=== PATIENT | female | born 1990 | race Caucasian/White ===

== ENCOUNTER → 2023-12-06 | Emergency (ER) | payer SELFPAY ==
[~2023-12-06] MED LIST: BUPIVACAINE 0.5% PF 10 ML VIAL ONE; CEPHALEXIN 250 MG CAP ONE; CODEINE 30MG/APAP 300MG TAB ONE; KETOROLAC 30 MG/ML INJ ONE; ONDANSETRON 4 MG (ODT) TAB ONE; PROMETHAZINE 25 MG TABLET ONE
--- NOTE | 2023-12-07 00:29 | EDPHYS ---
Physician Documentation [facility] Name: Janey Rayo Age: 33 yrs Sex: Female : 1990 Arrival Date: 12/06/2023 Time: 23:06 Bed 6 Private MD: ED Physician Hermilo Thurman HPI: 12/05 23:21 This 33 yrs old Female presents to ER via Unassigned with complaints of sp4 Toothache. 12/06 00:25 33-year-old female presents with acute worsening of her chronic dental pain left lower sp4 gingiva tooth #18 . Patient states there is moderate to severe pain tooth is severely decayed with large cavity. . Historical: - Allergies: 12/05 23:29 Zofran; jb4 23:29 Seroquel; jb4 23:29 Adderall; jb4 - PMHx: 23:29 Depressive disorder; Anxiety; Bipolar disorder; adhd; jb4 - PSHx: 23:29 None; jb4 - Immunization history:: Adult Immunizations up to date. - Social history:: Smoking status: Patient reports the use of cigarette tobacco products, smokes one pack cigarettes per day. Patient uses street drugs, Methamphetamine (Meth). - Family history:: not pertinent. ROS: 12/06 00:25 Constitutional: Negative for fever, chills, and weight loss, positive for dental pain sp4 All other systems are negative, Exam: 00:25 Constitutional: This is a well developed, well nourished patient who is awake, alert, sp4 and in no acute distress. Head/Face: Normocephalic, atraumatic. Eyes: Pupils equal round and reactive to light, extra-ocular motions intact. Lids and lashes normal. Conjunctiva and sclera are not injected. Cornea within normal limits. Periorbital areas with no swelling, redness, or edema. ENT: Nares patent. No nasal discharge, no septal abnormalities noted. Tympanic membranes are normal and external auditory canals are clear. Oropharynx with no redness, swelling, or masses, exudates, or evidence of obstruction, uvula midline. Mucous membranes moist. There is moderate periodontal disease, tooth #18 extensive decay with large cavity signs of decay into the root canals. Nonsalvageable appearing, otherwise there are several areas of dental carious including several dental cavities. Neck: Trachea midline, no thyromegaly or masses palpated, and no cervical lymphadenopathy. Supple, full range of motion without nuchal rigidity, or vertebral point tenderness. Chest/axilla: Normal chest wall appearance and motion. Nontender with no deformity. No lesions are appreciated. Cardiovascular: Regular rate and rhythm with a normal S1 and S2. No gallops, murmurs, or rubs. Normal PMI, no JVD. No pulse deficits. Respiratory: Lungs have equal breath sounds bilaterally, clear to auscultation and percussion. No rales, rhonchi or wheezes noted. No increased work of breathing, no retractions or nasal flaring. Abdomen/GI: Soft, with normal bowel sounds. No distension or tympany. No guarding or rebound. No evidence of tenderness throughout. Back: No spinal tenderness. No costovertebral tenderness. Skin: Warm, dry with normal turgor. Normal color with no rashes, no lesions, and no evidence of cellulitis. MS/ Extremity: Pulses equal, no cyanosis. Neurovascular intact. Full, normal range of motion. Neuro: Awake and alert, GCS 15, oriented to person, place, time, and situation. Cranial nerves II-XII grossly intact. Motor strength 5/5 in all extremities. Sensory grossly intact. Psych: Awake, alert, with orientation to person, place and time. Behavior, mood, and affect are within normal limits Vital Signs: 12/05 23:26 BP 120 / 83; Pulse 93; Resp 16; Temp 97.9(O); Pulse Ox 100% on R/A; Weight 61.23 kg; jb4 Height 5 ft. 3 in. (R); Pain 10/10; 23:26 Body Mass Index 23.91 (61.23 kg, 160.02 cm) jb4 23:26 Pain Scale: Adult jb4 MDM: 23:22 Patient medically screened. sp4 12/06 00:25 Differential diagnosis: dental caries, gingivitis, dental abscess, aphthous ulcers, sp4 gingivostomatitis. Data reviewed: vital signs, nurses notes. ED course: Patient will be discharged home with p.o. tramadol p.o. cephalexin p.o. ibuprofen. Advise follow-up with oral surgeon for extraction of the nearly decayed left lower molar tooth #18. . Administered Medications: 00:06 Not Given (drug allergyy): ondansetron4 mg PO once vc1 00:06 Drug: Promethazine PO 25 mg PO once Route: PO; vc1 00:52 Follow up: Response: No adverse reaction; Marked relief of symptoms; Pain is decreased vc1 00:07 Drug: Ketorolac IM 60 mg IM once Route: IM; Site: right ventrogluteal; vc1 00:52 Follow up: Response: No adverse reaction; Marked relief of symptoms; Pain is decreased vc1 00:07 Drug: Acetaminophen-Codeine PO (300 mg-30 mg) 2 tabs PO once; RASS on ADMIN: Combtv4, vc1 Very Agttd3, Agttd2, Rstlss1, AlertClm0, Drwsy-1, Lt Sdtn-2, Mod Sdtn-3, Dp Sdtn-4, UnArsble-5 Route: PO; 00:52 Follow up: Response: No adverse reaction; Marked relief of symptoms; Pain is decreased vc1 00:07 Drug: Cephalexin PO 500 mg PO once Route: PO; vc1 00:52 Follow up: Response: No adverse reaction vc1 00:07 Drug: Bupivacaine Infiltration (0.5 %) 20 ml 10 ml Infiltration once {Note: vc1 Administered by Dr. Thurmna to left gum.} Volume: 10 ml; Route: Infiltration; Disposition Summary: 12/07/23 00:41 Discharge Ordered Notes: Location: Home(12/07/23 00:41) sp4 Problem: new(12/07/23 00:41) sp4 Symptoms: have improved(12/07/23 00:41) sp4 Condition: Stable(12/07/23 00:41) sp4 Diagnosis - Dental root caries(12/07/23 00:41) sp4 - Periodontal disease, dental cavity, acute pulpitis, dental decay tooth # 18 sp4 Followup: sp4 - With: Brant Fontana DDS - When: 1 week - Reason: Recheck today's complaints Discharge Instructions: - Discharge Summary Sheet sp4 - Dental Pain sp4 Forms: - Patient Portal Instructions sp4 Prescriptions: - Cephalexin 250 mg Oral Capsule - take 1 capsule ORAL route every 8 hours for 10 days; 30 capsule; Refills: 0, sp4 Product Selection Permitted - Ibuprofen 800 mg Oral Tablet - take 1 tablet ORAL route every 8 hours As needed take with food; 30 tablet; sp4 Refills: 0, Product Selection Permitted - Tramadol 50 mg Oral Tablet - take 1 tablet ORAL route every 8 hours as needed; 12 tablet; Refills: 0, sp4 Product Selection Permitted Signatures: Loki Collier, RN RN jb4 Grace De La Garza RN RN vc1 Hermilo Thurman MD MD sp4 Corrections: (The following items were deleted from the chart) 00:39 00:29 Home sp4 sp4 00: 00:29 new sp4 sp4 : 00:29 have improved sp4 sp4 : 00:29 Stable sp4 sp4 : 00:29 Dental root caries sp4 sp4 :39 00:29 Dental cavity, acute pulpitis, periodontal disease, dental root canal decay sp4 sp4
--- NOTE | 2023-12-07 00:29 | ER ---
Nurse's Notes [facility] Name: Janey Rayo Age: 33 yrs Sex: Female : 1990 Arrival Date: 12/06/2023 Time: 23:06 Bed 6 Private MD: Diagnosis: Dental root caries;Periodontal disease, dental cavity, acute pulpitis, dental decay tooth # 18 Presentation: 12/05 23:26 Chief complaint: Patient states: I am having pain in my left lower jaw. I am having jb4 issues with my wisdom tooth and the tooth next to it is broken. The pain started yesterday. Coronavirus screen: At this time, the client does not indicate any symptoms associated with coronavirus-19. Ebola Screen: No symptoms or risks identified at this time. Initial Sepsis Screen: Does the patient meet any 2 criteria? HR > 90 bpm. Does the patient have a suspected source of infection? No. Patient's initial sepsis screen is negative. Risk Assessment: Do you want to hurt yourself or someone else? Patient reports no desire to harm self or others. Onset of symptoms was December 06, 2023. Transition of care: patient was not received from another setting of care. 23:26 Method Of Arrival: Ambulatory jb4 23:26 Acuity: JAY 4 jb4 Triage Assessment: 23:29 General: Appears in no apparent distress. uncomfortable, Behavior is calm, cooperative. jb4 Pain: Complains of pain in lower left third molar and lower left second molar Pain does not radiate. EENT: Reports pain in lower left third molar and lower left second molar. Neuro: Level of Consciousness is awake, alert, obeys commands, Oriented to person, place, time, situation. Cardiovascular: Patient's skin is warm and dry. Respiratory: Airway is patent Respiratory effort is even, unlabored, Respiratory pattern is regular, symmetrical. GI: No signs and/or symptoms were reported involving the gastrointestinal system. : No signs and/or symptoms were reported regarding the genitourinary system. Derm: Skin is intact, Skin is pink, warm \T\ dry. Musculoskeletal: Circulation, motion, and sensation intact. Range of motion: intact in all extremities. Historical: - Allergies: 23:29 Zofran; jb4 23:29 Seroquel; jb4 23:29 Adderall; jb4 - PMHx: 23:29 Depressive disorder; Anxiety; Bipolar disorder; adhd; jb4 - PSHx: 23:29 None; jb4 - Immunization history:: Adult Immunizations up to date. - Social history:: Smoking status: Patient reports the use of cigarette tobacco products, smokes one pack cigarettes per day. Patient uses street drugs, Methamphetamine (Meth). - Family history:: not pertinent. Screenin/14 00:[address] [facility] ED Fall Risk Assessment (Adult) History of falling in the last 3 months, vc1 including since admission No falls in past 3 months (0 pts) Confusion or Disorientation No (0 pts) Intoxicated or Sedated No (0 pts) Impaired Gait No (0 pts) Mobility Assist Device Used No (0 pt) Altered Elimination No (0 pt) Score/Fall Risk Level 0 - 2 = Low Risk Oriented to surroundings, Maintained a safe environment, Educated pt \T\ family on fall prevention, incl call for assistance when getting out of bed. Abuse screen: Denies threats or abuse. Nutritional screening: No deficits noted. Tuberculosis screening: No symptoms or risk factors identified. Assessment: 00:48 General: Appears in no apparent distress. uncomfortable, Behavior is calm, cooperative, vc1 appropriate for age. Pain: Complains of pain in lower left second molar and lower left third molar Pain does not radiate. Pain currently is 10 out of 10 on a pain scale. Quality of pain is described as sharp, pulsating, Pain began suddenly, Is continuous, Alleviated by nothing. Aggravated by Noted to be grimacing, Also complains of no other associated symptoms. Neuro: [place] Agitation-Sedation Scale (RASS): 0 - Alert and Calm Level of Consciousness is awake, alert, obeys commands, Oriented to person, place, time, situation, Appropriate for age. Cardiovascular: Heart tones S1 S2 Capillary refill < 3 seconds Patient's skin is warm and dry. Respiratory: Airway is patent Respiratory effort is even, unlabored, Respiratory pattern is regular, symmetrical, Breath sounds are clear. GI: No deficits noted. No signs and/or symptoms were reported involving the gastrointestinal system. : No deficits noted. No signs and/or symptoms were reported regarding the genitourinary system. EENT: tooth decay noted to bottom left back 2 teeth. Derm: No deficits noted. No signs and/or symptoms reported regarding the dermatologic system. Musculoskeletal: No deficits noted. No signs and/or symptoms reported regarding the musculoskeletal system. Vital Signs: 12/05 23:26 BP 120 / 83; Pulse 93; Resp 16; Temp 97.9(O); Pulse Ox 100% on R/A; Weight 61.23 kg; jb4 Height 5 ft. 3 in. (R); Pain 10/10; 23:26 Body Mass Index 23.91 (61.23 kg, 160.02 cm) jb4 23:26 Pain Scale: Adult jb4 ED Course: 23:09 Patient arrived in ED. jj6 23:21 Hermilo Thurman MD is Attending Physician. sp4 23:29 Triage completed. jb4 23:29 Arm band placed on right wrist. jb4 23:59 Louann Jackson, YOLANDA is Primary Nurse. lg3 03 00:00 Patient has correct armband on for positive identification. Bed in low position. Call vc1 light in reach. Pulse ox on. NIBP on. 00:28 Brant Fontana DDS is Referral Physician. sp4 00:30 Assist provider with nerve block (dental) of bottom left back 2 teeth. Set up for vc1 procedure. Performed by Hermilo Thurman MD Patient tolerated well. 00:39 Brant Fontana DDS is Referral Physician. sp4 00:51 Provided Education on: complete all of the antibiotic. vc1 00:51 Patient did not have IV access during this emergency room visit. vc1 Administered Medications: 00:06 Not Given (drug allergyy): ondansetron4 mg PO once vc1 00:06 Drug: Promethazine PO 25 mg PO once Route: PO; vc1 00:52 Follow up: Response: No adverse reaction; Marked relief of symptoms; Pain is decreased vc1 00:07 Drug: Ketorolac IM 60 mg IM once Route: IM; Site: right ventrogluteal; vc1 00:52 Follow up: Response: No adverse reaction; Marked relief of symptoms; Pain is decreased vc1 00:07 Drug: Acetaminophen-Codeine PO (300 mg-30 mg) 2 tabs PO once; RASS on ADMIN: Combtv4, vc1 Very Agttd3, Agttd2, Rstlss1, AlertClm0, Drwsy-1, Lt Sdtn-2, Mod Sdtn-3, Dp Sdtn-4, UnArsble-5 Route: PO; 00:52 Follow up: Response: No adverse reaction; Marked relief of symptoms; Pain is decreased vc1 00:07 Drug: Cephalexin PO 500 mg PO once Route: PO; vc1 00:52 Follow up: Response: No adverse reaction vc1 00:07 Drug: Bupivacaine Infiltration (0.5 %) 20 ml 10 ml Infiltration once {Note: vc1 Administered [address] Dr. Thurman to left gum.} Volume: 10 ml; Route: Infiltration; Medication: 00:30 VIS not applicable for this client. vc1 Outcome: 00:29 Discharge ordered by . sp4 00:41 Discharge ordered by . sp4 00:51 Discharged to home ambulatory, vc1 00:51 Condition: good 00:51 Discharge instructions given to patient, Instructed on discharge instructions, follow up and referral plans. medication usage, Demonstrated understanding of instructions, follow-up care, medications, Prescriptions given X 3, 00:51 Patient left the ED. vc1 Signatures: Loki Collier, RN RN jb4 Louann Jackson, RN RN lg3 Vaishali Le jj6 Grace De La Garza RN RN vc1 Hermilo Thurman MD MD sp4
[2023-12-07 01:10] VITALS: BP 120/83; TEMP 97.9; O2SAT 100
== END ==
LOC: ER 23:06
DX: K02.7 Dental root caries (principal); K05.6 Periodontal disease, unspecified; K04.01 Reversible pulpitis
CPT/HCPCS: Q0162; Q0169